=== PATIENT | female | born 2000 | race African-American/Black ===

== ENCOUNTER 2021-05-23 21:17 | Emergency (ER) | payer MEDICAID ==
[~2021-05-23] VITALS: Ht 177.8 cm; Wt 59.0 kg
[2021-05-23 21:45] VITALS: BP 123/81
== END 2021-05-24 00:11 | disposition left against medical advice (07) ==
LOC: ER 21:17
DX: Z53.21 Procedure and treatment not carried out due to patient leaving prior to being seen by health care provider (principal); R30.0 Dysuria; R35.89 Other polyuria
CPT/HCPCS: 82962